=== PATIENT | male | born 1985 ===

== ENCOUNTER 2021-01-21 21:24 | Emergency (ER) | payer SELFPAY ==
[~2021-01-21] VITALS: Ht 167.6 cm; Wt 66.4 kg
[2021-01-21 21:28] VITALS: Ht 167.6 cm; Wt 66.4 kg
[2021-01-21] MEDS ORDERED: HYDROCODON-ACE1 EA10 PO (23:05)
[2021-01-21 23:23] VITALS: BP 114/79
== END 2021-01-21 23:23 | disposition home or self-care (01) ==
LOC: D.ER 21:24
DX: S40.029A Contusion of unspecified upper arm, initial encounter (principal); S16.1XXA Strain of muscle, fascia and tendon at neck level, initial encounter; S62.305A Unspecified fracture of fourth metacarpal bone, left hand, initial encounter for closed fracture; V29.9XXA Motorcycle rider (driver) (passenger) injured in unspecified traffic accident, initial encounter; Y93.9 Activity, unspecified; Y92.9 Unspecified place or not applicable